=== PATIENT | female | born 1955 | race Caucasian/White ===

== ENCOUNTER 2023-06-09 12:29 | Emergency (ER) | payer MEDICARE, MEDICAID ==
[~2023-06-09] VITALS: Ht 157.5 cm; Wt 74.0 kg
[~2023-06-09 12:29] MED LIST: ATORVASTATIN CA20 MG PO; CLOPIDOGREL75 MG PO; CYMBALTA20 MG PO; LIPITOR20 M1 PO; LORTAB 5-325 MG1 TAB; METFORMIN1000 MG PO; METFORMIN500 MG PO; PRAVASTATIN SOD10 MG PO; PROVENTIL HFA IN
[2023-06-09 13:06] VITALS: BP 125/78
[2023-06-09 13:30] VITALS: BP 132/74
[2023-06-09 14:00] VITALS: BP 140/68
[2023-06-09 14:30] VITALS: BP 134/68
[2023-06-09] MEDS ORDERED: LORTAB 5/3255 MG PO (14:31)
[2023-06-09 14:52] VITALS: BP 134/68
== END 2023-06-09 14:53 | disposition home or self-care (01) ==
LOC: ED 12:29
DX: S62.397A Other fracture of fifth metacarpal bone, left hand, initial encounter for closed fracture (principal); E11.9 Type 2 diabetes mellitus without complications; X50.0XXA Overexertion from strenuous movement or load, initial encounter; Y92.009 Unspecified place in unspecified non-institutional (private) residence as the place of occurrence of the external cause; Z79.84 Long term (current) use of oral hypoglycemic drugs